=== PATIENT | female | born 1980 | race Caucasian/White ===

== ENCOUNTER → 2024-05-16 06:19 | Day surgery (SDC) | payer OTHER, SELFPAY | LOC: GI 06:19 | PROVIDERS: ATTENDING PHYSICIAN Internal Medicine | DX: Z12.11 Encounter for screening for malignant neoplasm of colon (principal); R19.5 Other fecal abnormalities; K64.8 Other hemorrhoids; D12.7 Benign neoplasm of rectosigmoid junction | CPT/HCPCS: G0121 ==

== ENCOUNTER → 2024-09-19 06:18 | Day surgery (SDC) | payer OTHER, SELFPAY | LOC: GI 06:18 | PROVIDERS: ATTENDING PHYSICIAN Internal Medicine | DX: Z12.11 Encounter for screening for malignant neoplasm of colon (principal); R19.5 Other fecal abnormalities; D12.3 Benign neoplasm of transverse colon; D12.5 Benign neoplasm of sigmoid colon; K63.5 Polyp of colon; K57.30 Diverticulosis of large intestine without perforation or abscess without bleeding | CPT/HCPCS: 45385; 45380; 88305 ==